=== PATIENT | female | born 2005 | race Caucasian/White ===

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

== ENCOUNTER → 2023-03-08 | Outpatient (CLI) | payer OTHER ==
[~2023-03-08] MED LIST changes: +METPHE20 PO; +ONDA4ODT MM; +SERT100 PO
== END | disposition home or self-care (01) ==
LOC: LAB SHORT 12:59 → LAB 12:59
DX: Z34.83 Encounter for supervision of other normal pregnancy, third trimester (principal)
CPT/HCPCS: 87081; 87150

== ENCOUNTER 2023-04-01 06:22 | Inpatient (IN) | payer OTHER ==
[2023-04-01] VITALS (22 sets, daily range): BP systolic 92–119; BP diastolic 60–96
[~2023-04-01] VITALS: Ht 162.6 cm; Wt 93.6 kg
[2023-04-01] MEDS ORDERED: ZOLOFT10013 PO (08:26)
[2023-04-01 11:24] LABS: BASOPHILS ABSOLUTE AUTO 0.02 K/mm3 (0.00-0.23); BASOPHILS PERCENT AUTO 0 % (0-2); EOSINOPHILS ABSOLUTE AUTO 0.04 K/mm3 (0.00-0.68); EOSINOPHILS PERCENT AUTO 1 % (0-6); Hemoglobin 11.1 g/dL (11.5-16.0); IMMATURE GRAN ABSOLUTE AUTO 0.03 K/mm3 (0.00-0.10); IMMATURE GRAN PERCENT AUTO 0 % (0-1); LYMPHOCYTES ABSOLUTE AUTO 1.21 K/mm3 (0.84-5.20); LYMPHOCYTES PERCENT AUTO 14 % (21-46); MONOCYTES ABSOLUTE AUTO 0.68 K/mm3 (0.16-1.47); MONOCYTES PERCENT AUTO 8 % (4-13); Mean Corpuscular HGB 28.6 pg (26.0-34.0); Mean Corpuscular HGB Conc 32.6 g/dL (31.5-36.5); Mean Corpuscular Volume 88 fL (80-100); Mean Platelet Volume 9.8 fL (9.1-12.4); NEUTROPHILS ABSOLUTE AUTO 6.58 K/mm3 (1.96-9.15); NEUTROPHILS PERCENT AUTO 77 % (41-73); Platelet Count 182 K/mm3 (150-400); RDW Standard Deviation 50.9 fL (35.1-46.3); Red Blood Cell Count 3.88 M/mm3 (3.80-5.20); White Blood Cell Count 8.56 K/mm3 (4.00-11.30)
[2023-04-02 01:06] VITALS: BP 114/72
[2023-04-02 03:32] VITALS: BP 110/61
[2023-04-02 06:42] LABS: BASOPHILS ABSOLUTE AUTO 0.02 K/mm3 (0.00-0.23); BASOPHILS PERCENT AUTO 0 % (0-2); EOSINOPHILS ABSOLUTE AUTO 0.01 K/mm3 (0.00-0.68); EOSINOPHILS PERCENT AUTO 0 % (0-6); Hematocrit 38.5 % (33.0-51.0); Hemoglobin 12.4 g/dL (11.5-16.0); IMMATURE GRAN ABSOLUTE AUTO 0.04 K/mm3 (0.00-0.10); IMMATURE GRAN PERCENT AUTO 0 % (0-1); LYMPHOCYTES PERCENT AUTO 13 % (21-46); MONOCYTES ABSOLUTE AUTO 0.83 K/mm3 (0.16-1.47); MONOCYTES PERCENT AUTO 9 % (4-13); Mean Corpuscular HGB 27.9 pg (26.0-34.0); Mean Corpuscular HGB Conc 32.2 g/dL (31.5-36.5); Mean Corpuscular Volume 87 fL (80-100); Mean Platelet Volume 10.2 fL (9.1-12.4); NEUTROPHILS ABSOLUTE AUTO 7.58 K/mm3 (1.96-9.15); NEUTROPHILS PERCENT AUTO 78 % (41-73); Platelet Count 214 K/mm3 (150-400); RDW Coefficient Variation 16.2 % (11.7-14.2); RDW Standard Deviation 50.4 fL (35.1-46.3); Red Blood Cell Count 4.44 M/mm3 (3.80-5.20); White Blood Cell Count 9.78 K/mm3 (4.00-11.30)
[2023-04-02 07:24] VITALS: BP 117/75
[2023-04-02 11:33] VITALS: BP 108/65
[2023-04-02 16:36] VITALS: BP 113/74
[2023-04-02 20:21] VITALS: BP 115/60
--- NOTE | 2023-04-02 23:22 | NUR ---
Pt had questions about certificate packet. Patient was holding baby. No further needs at this time.
--- NOTE | 2023-04-02 23:38 | NUR ---
All needs were met,Trash emptied.
[2023-04-03 00:34] VITALS: BP 106/66
[2023-04-03 05:53] VITALS: BP 109/71
[2023-04-03 08:34] VITALS: BP 119/80
--- NOTE | 2023-04-03 09:30 | NUR ---
Printed d/c instructions reviewed pt and . Denies questions/concerns at this time. 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
[2023-04-03] MEDS ORDERED: IBUP800 PO (10:39)
[2023-04-03] MEDS ORDERED: Percocet 5-3251 EACH PO (10:40)
[2023-04-03 11:04] VITALS: BP 130/85
--- NOTE | 2023-04-03 11:07 | NUR ---
No acute changes this shift. ID bands matched w/nb and verification sheet. Pt denies additional needs prior to d/c. Pt d/c'd home ambulatory to care of .
== END 2023-04-03 11:07 | disposition home or self-care (01) | DRG 788 ==
LOC: OBS 06:22 → BC 06:24 → OBS 06:32 → BC 06:33
PROVIDERS: ADMIT Family Medicine
PROC: 10D00Z1 Extraction of Products of Conception, Low, Open Approach (ICD-10-PCS; principal; 2023-04-01 14:00)
DX: O34.211 Maternal care for low transverse scar from previous cesarean delivery (principal); O99.344 Other mental disorders complicating childbirth; F41.9 Anxiety disorder, unspecified; Z37.0 Single live birth; Z91.030 Bee allergy status; Z91.018 Allergy to other foods; Z79.899 Other long term (current) drug therapy; Z79.891 Long term (current) use of opiate analgesic; Z3A.39 39 weeks gestation of pregnancy
CPT/HCPCS: 36415; 85025; 86850; 86900; 86901; 90471; 90707; A9270; J0690; J1885; J2250; J2405; J2590; J2704; J2765; J3010; J7120

== ENCOUNTER → 2024-04-24 | Outpatient (CLI) | payer OTHER ==
[~2024-04-24] MED LIST changes: +ZOLOFT10013 PO
[2024-04-25 14:41] LABS: Candida Group, PCR NOT DETECTED (NOT DETECT); Candida glabrata-krusei, PCR NOT DETECTED (NOT DETECT)
[2024-04-25 14:42] LABS: Bacterial Vaginosis PCR Positive (NEGATIVE)
== END | disposition home or self-care (01) ==
LOC: LAB 19:01 → LAB SHORT 19:01
PROVIDERS: General Practice
DX: N89.8 Other specified noninflammatory disorders of vagina (principal)
CPT/HCPCS: 87481; 87661; 87801

== ENCOUNTER → 2024-05-15 | Outpatient (CLI) | payer OTHER ==
[2024-05-18 20:09] LABS: APTIMA MEDIA TYPE Unisex Swab; C. TRACHOMATIS BY TMA Negative (Negative); N. GONORRHOEAE BY TMA Negative (Negative); SPECIMEN SOURCE Cervical
== END ==
LOC: LAB SHORT 19:13 → LAB 19:13
PROVIDERS: Physician Assistant Medical
DX: N94.89 Other specified conditions associated with female genital organs and menstrual cycle (principal)
CPT/HCPCS: 87491; 87591

== ENCOUNTER 2024-09-22 19:22 | Emergency (ER) | payer OTHER ==
[~2024-09-22] VITALS: Ht 165.1 cm; Wt 72.6 kg
[2024-09-22 19:39] VITALS: BP 136/87
[2024-09-22] MEDS ORDERED: Acetaminophen 500 MG Tab PO ONE (21:05)
[2024-09-22] MEDS ORDERED: Ibuprofen 400 MG Tab PO ONE (21:05)
[2024-09-22] MEDS ORDERED: METPHE20CR PO (21:23)
[2024-09-22] MEDS ORDERED: CITALOPRAM HBR20 M9 PO (21:23)
[2024-09-22] MEDS ORDERED: BUSPIRONE HCL10 M6 PO (21:23)
[2024-09-22] MEDS ORDERED: ACET500 PO (21:55)
[2024-09-22] MEDS ORDERED: IBUP600 PO (21:55)
== END 2024-09-22 22:03 | disposition home or self-care (01) ==
LOC: ER 19:22
DX: M25.532 Pain in left wrist (principal); H54.8 Legal blindness, as defined in USA; G43.909 Migraine, unspecified, not intractable, without status migrainosus; J45.909 Unspecified asthma, uncomplicated; K21.9 Gastro-esophageal reflux disease without esophagitis; Z91.018 Allergy to other foods; Z91.030 Bee allergy status; W19.XXXA Unspecified fall, initial encounter
CPT/HCPCS: 73110; 73130; 99283-25; A9270

== ENCOUNTER → 2024-11-24 | Outpatient (CLI) | payer OTHER ==
[~2024-11-24] MED LIST changes: +ACET500 PO; +BUSPIRONE HCL10 M6 PO; +CITALOPRAM HBR20 M9 PO; +IBUP600 PO; +METPHE20CR PO
== END | disposition home or self-care (01) ==
LOC: LAB SHORT 13:00 → LAB 13:00
DX: J02.9 Acute pharyngitis, unspecified (principal)
CPT/HCPCS: 87081

== ENCOUNTER → 2024-12-12 | Outpatient (CLI) | payer OTHER ==
[2024-12-12 19:11] LABS: Candida Group, PCR NOT DETECTED (NOT DETECT); Candida glabrata-krusei, PCR NOT DETECTED (NOT DETECT)
[2024-12-12 19:35] LABS: Bacterial Vaginosis PCR Positive (NEGATIVE)
== END | disposition home or self-care (01) ==
LOC: LAB SHORT 16:09 → LAB 16:09
PROVIDERS: Emergency Medicine
DX: N89.8 Other specified noninflammatory disorders of vagina (principal)
CPT/HCPCS: 81515